=== PATIENT | male | born 1965 ===

== ENCOUNTER 2016-09-28 03:08 | Emergency (ER) | payer OTHER ==
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
[2016-09-28 04:55] VITALS: BP 118/77; PULSE 98; RESP 18; TEMP 98.2
[2016-09-28 05:57] VITALS: O2SAT 99
--- NOTE | 2016-09-28 07:49 | RAD ---
PROCEDURE: Right Hip Radiographs. HISTORY: hip pain COMPARISON: None. FINDINGS: BONES: Normal. No fracture. JOINTS: Normal. SOFT TISSUES: Normal. OTHER FINDINGS: None. IMPRESSION: Normal radiographs of right hip.
--- NOTE | 2016-09-28 07:54 | RAD ---
PROCEDURE: Cervical Spine Radiographs. HISTORY: Pain. COMPARISON: None. FINDINGS: BONES: Alignment maintained. No fracture. Dens Intact. DISC SPACES: Normal. SOFT TISSUES: Normal. No prevertebral soft tissue swelling. OTHER FINDINGS: None. IMPRESSION: No radiographic evidence of acute fracture or subluxation. If clinically warranted further assessment by CT or MRI may be obtained.
--- NOTE | 2016-10-03 13:30 | CARD ---
APPROVED REPORT EKG Measurement Heart [id number] MD [id number] <Conclusion> Sinus tachycardia Otherwise normal ECG
== END 2016-09-28 05:03 | disposition home or self-care (01) ==
LOC: C.ER 03:08
DX: S16.1XXA Strain of muscle, fascia and tendon at neck level, initial encounter (principal); S73.101A Unspecified sprain of right hip, initial encounter; V49.40XA Driver injured in collision with unspecified motor vehicles in traffic accident, initial encounter